=== PATIENT | male | born 1945 | race Caucasian/White ===

== ENCOUNTER 2016-02-15 10:43 | Outpatient (CLI) | payer MEDICARE | END 2016-02-15 10:44 | disposition home or self-care (01) | DX: G47.33 Obstructive sleep apnea (adult) (pediatric) (principal); G47.00 Insomnia, unspecified | CPT/HCPCS: 99204; G0463 ==

== ENCOUNTER 2016-03-05 19:33 | Outpatient (CLI) | payer MEDICARE | END 2016-03-05 19:34 | disposition home or self-care (01) | DX: G47.33 Obstructive sleep apnea (adult) (pediatric) (principal); G47.61 Periodic limb movement disorder ==

== ENCOUNTER 2016-03-25 07:56 | Outpatient (CLI) | payer MEDICARE | END 2016-03-25 07:57 | disposition home or self-care (01) | DX: I10 Essential (primary) hypertension (principal) ==

== ENCOUNTER 2016-03-25 08:14 | Outpatient (CLI) | payer MEDICARE | END 2016-03-25 08:15 | disposition home or self-care (01) | DX: I10 Essential (primary) hypertension (principal) ==

== ENCOUNTER 2016-03-26 09:27 | Outpatient (CLI) | payer MEDICARE | END 2016-03-26 09:28 | disposition home or self-care (01) | DX: G47.33 Obstructive sleep apnea (adult) (pediatric) (principal) | CPT/HCPCS: 99213; G0463 ==

== ENCOUNTER 2017-09-29 14:15 | Outpatient (CLI) | payer MEDICARE ==
--- NOTE | 2017-09-29 15:53 | XRAY Report ---
Procedure Date: 09/29/2017 Accession Number: [id number] / [id number] Procedure: XR - Cervical Spine Complete CPT Code: FULL RESULT: EXAM: CERVICAL SPINE RADIOGRAPHY EXAM DATE: 09/29/2017 02:37 PM. CLINICAL HISTORY: CERVICALGIA. COMPARISONS: None. TECHNIQUE: 5 views. FINDINGS: Alignment: Normal. No spondylolisthesis or scoliosis. Bones: The cervical vertebral bodies and posterior elements are well-visualized from the skull base through C7-T1. No fracture or bone lesion evident. Disks: Multilevel moderate disk degeneration. Facets: Multiple moderate facet arthrosis. Neural Foramina: Moderate midcervical foraminal narrowing on the right, mild on the left. Soft Tissues: Unremarkable. IMPRESSION: Moderate disk degeneration. Mild facet arthrosis. Mild to moderate bilateral neural foraminal narrowing. RADIA
== END 2017-09-29 14:16 | disposition home or self-care (01) ==
LOC: DI 14:15
PROVIDERS: ATTEND Internal Medicine
DX: M50.30 Other cervical disc degeneration, unspecified cervical region (principal); M48.02 Spinal stenosis, cervical region
CPT/HCPCS: 72050

== ENCOUNTER 2018-02-05 08:05 | Outpatient (CLI) | payer MEDICARE ==
[2018-02-05 12:47] LABS: BASOPHILS # (AUTO) 0.1 10^3/uL (0.0-0.1); BASOPHILS % (AUTO) 1.1 %; EOSINOPHILS # (AUTO) 0.3 10^3/uL (0.0-0.7); EOSINOPHILS % (AUTO) 5.6 %; HGB - HEMOGLOBIN 16.3 g/dL (14.0-18.0); LYMPHOCYTES # (AUTO) 1.4 10^3/uL (1.5-3.5); LYMPHOCYTES % (AUTO) 25.2 %; MEAN CORPUSCULAR HEMOGLOBIN 32.7 pg (27.0-31.0); MEAN CORPUSCULAR HGB CONC 35.2 g/dL (32.0-36.0); MEAN PLATELET VOLUME 9.7 fL (7.4-11.4); MONOCYTES # (AUTO) 0.6 10^3/uL (0.0-1.0); MONOCYTES % (AUTO) 10.8 %; NEUTROPHILS # (AUTO) 3.1 10^3/uL (1.5-6.6); NEUTROPHILS % (AUTO) 57.3 %; PLT - PLATELET COUNT 143 10^3/uL (130-450); RED BLOOD COUNT 4.98 10^6/uL (4.70-6.10); RED CELL DISTRIBUTION WIDTH 13.2 % (12.0-15.0); WHITE BLOOD COUNT 5.4 x10^3/uL (4.8-10.8)
[2018-02-05 13:18] LABS: ALBUMIN 4.3 g/dL (3.2-5.5); ALBUMIN/GLOBULIN RATIO 1.4 (1.0-2.2); ALKALINE PHOSPHATASE 69 IU/L (42-121); ALT ALANINE AMINOTRANSFERASE 35 IU/L (10-60); AST ASPARTATE AMINOTRANSFERASE 28 IU/L (10-42); BILIRUBIN,TOTAL 1.2 mg/dL (0.2-1.0); BUN - BLOOD UREA NITROGEN 21 mg/dL (6-20); CARBON DIOXIDE - CO2 29 mmol/L (21-32); CHLORIDE 104 mmol/L (101-111); CHOL/HDL RATIO 3.2 (<5.0); CHOLESTEROL 158 mg/dL; CREATININE 1.2 mg/dL (0.6-1.2); GFR - MDRD 60 (>89); GLUCOSE 102 mg/dL (70-100); HDL CHOLESTEROL 50 mg/dL; LDL CHOLESTEROL,CALCULATED 88 mg/dL; LDL/HDL RATIO 1.8 (<3.6); SODIUM 139 mmol/L (135-145); TOTAL PROTEIN 7.3 g/dL (6.7-8.2); VLDL CHOLESTEROL 20 mg/dL
== END 2018-02-05 23:59 | disposition home or self-care (01) ==
LOC: LAB.R 08:05
PROVIDERS: ATTEND Internal Medicine
DX: E03.9 Hypothyroidism, unspecified (principal); I10 Essential (primary) hypertension; I25.10 Atherosclerotic heart disease of native coronary artery without angina pectoris; Z12.5 Encounter for screening for malignant neoplasm of prostate; Z79.899 Other long term (current) drug therapy
CPT/HCPCS: 80053; 80061; 84443; 85025; G0103; 83721; 84153

== ENCOUNTER 2018-03-11 16:11 | Outpatient (CLI) | payer MEDICARE ==
--- NOTE | 2018-03-12 16:05 | Ultrasound Report ---
Reason: HYPOTHYROIDISM Procedure Date: 03/11/2018 Accession Number: [id number] / [id number] Procedure: US - Head or Neck Soft Tissue CPT Code: FULL RESULT: EXAM: THYROID ULTRASOUND. EXAM DATE: 03/11/2018 04:25 PM. CLINICAL HISTORY: Hypothyroidism. COMPARISON: None. TECHNIQUE: Real time sonographic imaging of the thyroid was performed by the ordering box operator. Multiple sales representative printing supplies static images were saved for review. FINDINGS: THYROID GLAND: Right Lobe: 3.1 x 2.9 x 7.1 cm, volume 33.4 cc. Heterogeneous and echogenic diffusely enlarged thyroid gland with increased vascularity by color Doppler. Right Lobe Nodules: Along the inferior pole is a solid hypoechoic 1.3 x 1.2 x 1.7 cm mass without detectable vascularity or calcifications. In the midpole is a 1.3 x 1.0 x 1.0 cm hypoechoic vascular nodule without calcifications. Left Lobe: 2.4 x 3.6 x 5.5 cm, volume 25.6 cc. Heterogeneous and echogenic diffusely enlarged thyroid gland with increased vascularity by color Doppler. Left Lobe Nodules: None. Isthmus: 0.5 cm AP. Isthmic Nodules: None. LYMPH NODES: No adenopathy demonstrated in the central or lateral compartment. OTHER: None. IMPRESSION: Redemonstration of a heterogeneously enlarged echogenic thyroid gland. On today's exam there is globally increased vascularity, thyroiditis. Interval development of 2 nodules of the right thyroid. Recommendation: FNA of both nodules of the right thyroid gland. Per NIKHIL guidelines hypoechoic smoothly marginated nodules are of intermediate suspicion and should be sampled above a size of 1 cm. Management recommendations are based on 2015 [place] [employer] Management Guidelines for Adult Patients with Thyroid Nodules and Differentiated Thyroid Cancer. RADIA
== END 2018-03-11 16:12 | disposition home or self-care (01) ==
LOC: DI 16:11
PROVIDERS: ATTEND Internal Medicine
DX: E04.2 Nontoxic multinodular goiter (principal); E06.9 Thyroiditis, unspecified
CPT/HCPCS: 76536

== ENCOUNTER 2018-03-20 07:54 | Outpatient (CLI) | payer MEDICARE ==
--- NOTE | 2018-03-20 12:46 | CARDIAC PROCEDURE NOTE ---
DATE OF SERVICE: 03/20/2018 Physician: Lisa Mendes MD INDICATIONS: CAD. CARDIAC RISK FACTORS: Male gender, advanced age, hypertension, family history of heart disease. The patient has known coronary artery disease, status post atherectomy in the . PROCEDURE: After signing informed consent, the patient underwent a Rodger protocol treadmill stress test with Echo imaging at rest, and at peak heart rate. Resting heart rate: 58. Peak heart rate: 128 (85% predicted maximum heart rate for age). Resting blood pressure: 141/81. Peak blood pressure: 190/80. The patient exercised for 8 minutes and 25 seconds on a Rodger-protocol treadmill stress test. He achieved a peak heart rate of 128 (85% PMHR) and 10.2 METS. The patient had minimal shortness of breath and no chest pain or generalized fatigue. Normal heart rate and blood pressure response to exercise. (The patient had stopped his Metoprolol for 24 hours for this test.) RESTING EKG: Normal sinus rhythm, incomplete left bundle branch block. EKG AT PEAK: No new ST segment or T-wave changes. SUMMARY 1. Abnormal resting EKG. 2. Good exercise tolerance. 3. No ischemic changes by EKG criteria on this exercise stress test. 4. Echo images reported separately. cc: Leo Gibbs MD TD: 03/20/2018 11:10 MTDD
== END 2018-03-20 07:55 | disposition home or self-care (01) ==
LOC: DI 07:54
PROVIDERS: ATTEND Internal Medicine
DX: I25.10 Atherosclerotic heart disease of native coronary artery without angina pectoris (principal); I10 Essential (primary) hypertension; Z82.49 Family history of ischemic heart disease and other diseases of the circulatory system; R94.31 Abnormal electrocardiogram [ECG] [EKG]
CPT/HCPCS: 93016; 93017; 93018; 93350; A9512; A9538; 93351

== ENCOUNTER 2018-05-19 13:18 | Outpatient (CLI) | payer MEDICARE ==
[2018-05-19] MEDS ORDERED: BUFFERED LIDOCAINE 10 ML SYRINGE ONE (14:02)
--- NOTE | 2018-05-19 16:02 | Ultrasound Report ---
REVISED: THIS REPORT WAS ORIGINALLY SIGNED ON 05/19/2018 @ 1603. THE PRIMARY CARE PROVIDER FIELD REVISED ON 05/21/2018. Reason: THYROID NODULE Procedure Date: 05/19/2018 Accession Number: [id number] / [id number] Procedure: US - FNA Bx w/US Gnd 1st les CPT Code: 51044 FULL RESULT: EXAM: Thyroid Fine Needle Aspiration EXAM DATE: 05/19/2018 01:59 PM. CLINICAL HISTORY: Thyroid nodule. COMPARISON: None. TECHNIQUE: The risks, benefits, and alternatives of the procedure were discussed with the patient. All questions were answered. Written and verbal consent were obtained. A site was marked over the right thyroid lobe allowing access to both target right thyroid nodules in question under live sonographic evaluation, then subsequently prepped and draped in a sterile manner. Local anesthesia was performed with 1% lidocaine. A total of 4 22 gauge fine-needle aspirates/passes were performed through each of the 2 right thyroid nodules in question, then passed to the internal salesperson for preparation. Estimated blood loss was 0 mL. Sonographic images demonstrate needle placement within the lateral well-circumscribed hypoechoic right lobe nodule and the inferior pole hyperechoic right thyroid lobe nodule in question. Fluoroscopy Time: 0 minutes Number of Images: 23 FINDINGS IMPRESSION: Right lobe of the thyroid FNA sampling of 2 nodules. RADIA MTDD
[2018-05-19] MEDS ORDERED: BUFFERED LIDOCAINE 10 ML SYRINGE IU ONE (16:52)
== END 2018-05-19 13:19 | disposition home or self-care (01) ==
LOC: DI 13:18
PROVIDERS: ATTEND Registered Nurse
DX: E04.1 Nontoxic single thyroid nodule (principal)
CPT/HCPCS: 10005

== ENCOUNTER 2018-07-16 10:46 | Day surgery (SDC) | payer MEDICARE, OTHER ==
[2018-07-16] MEDS ORDERED: LACTATED RINGERS 1,000 ML IV ONE (10:48)
[2018-07-16] MEDS ORDERED: MIDAZOLAM 2 MG/2 ML VIAL IVP ONE (12:09)
[2018-07-16] MEDS ORDERED: fentaNYL 250 MCG/5 ML VIAL IVP ONE (12:09)
[2018-07-16 12:59] VITALS: BP 127/85
== END 2018-07-16 10:47 | disposition home or self-care (01) ==
LOC: SDS 10:46
PROVIDERS: ATTEND Surgery
PROC: 0DBK8ZZ Excision of Ascending Colon, Via Natural or Artificial Opening Endoscopic (ICD-10-PCS; principal; 2018-07-16 12:00)
DX: Z12.11 Encounter for screening for malignant neoplasm of colon (principal); I10 Essential (primary) hypertension; D12.2 Benign neoplasm of ascending colon; K57.30 Diverticulosis of large intestine without perforation or abscess without bleeding; K64.8 Other hemorrhoids; E06.3 Autoimmune thyroiditis; Z87.891 Personal history of nicotine dependence; Z86.14 Personal history of Methicillin resistant Staphylococcus aureus infection
CPT/HCPCS: 45385; J3010; J7120

== ENCOUNTER 2019-09-23 08:27 | Outpatient (CLI) | payer MEDICARE ==
[2019-09-23 08:42] LABS: BASOPHILS % (AUTO) 0.7 %; EOSINOPHILS # (AUTO) 0.2 10^3/uL (0.0-0.7); EOSINOPHILS % (AUTO) 3.7 %; HGB - HEMOGLOBIN 15.9 g/dL (14.0-18.0); LYMPHOCYTES # (AUTO) 1.8 10^3/uL (1.5-3.5); LYMPHOCYTES % (AUTO) 30.4 %; MEAN CORPUSCULAR HEMOGLOBIN 33.1 pg (27.0-31.0); MEAN CORPUSCULAR HGB CONC 34.9 g/dL (32.0-36.0); MEAN CORPUSCULAR VOLUME 94.8 fL (80.0-94.0); MEAN PLATELET VOLUME 10.8 fL (7.4-11.4); MONOCYTES # (AUTO) 0.5 10^3/uL (0.0-1.0); MONOCYTES % (AUTO) 7.8 %; NEUTROPHILS # (AUTO) 3.4 10^3/uL (1.5-6.6); NEUTROPHILS % (AUTO) 57.1 %; PLT - PLATELET COUNT 164 10^3/uL (130-450); RED BLOOD COUNT 4.81 10^6/uL (4.70-6.10); RED CELL DISTRIBUTION WIDTH 13.1 % (12.0-15.0); WHITE BLOOD COUNT 5.9 x10^3/uL (4.8-10.8)
[2019-09-23 09:04] LABS: ALBUMIN 4.3 g/dL (3.2-5.5); ALBUMIN/GLOBULIN RATIO 1.4 (1.0-2.2); ALKALINE PHOSPHATASE 72 IU/L (42-121); ALT ALANINE AMINOTRANSFERASE 48 IU/L (10-60); AST ASPARTATE AMINOTRANSFERASE 34 IU/L (10-42); BILIRUBIN,TOTAL 0.7 mg/dL (0.2-1.0); BUN - BLOOD UREA NITROGEN 24 mg/dL (6-20); CALCIUM 9.1 mg/dL (8.5-10.3); CARBON DIOXIDE - CO2 26 mmol/L (21-32); CHLORIDE 104 mmol/L (101-111); CHOL/HDL RATIO 3.5 (<5.0); CHOLESTEROL 140 mg/dL; CREATININE 1.1 mg/dL (0.6-1.2); GLUCOSE 117 mg/dL (70-100); HDL CHOLESTEROL 40 mg/dL; LDL CHOLESTEROL,CALCULATED 81 mg/dL; SODIUM 139 mmol/L (135-145); TOTAL PROTEIN 7.4 g/dL (6.7-8.2); VLDL CHOLESTEROL 19 mg/dL
[2019-09-23 09:28] LABS: PSA FREE 0.33 ng/mL (0.16-2.81)
[2019-09-23 09:29] LABS: PSA TOTAL 0.91 ng/mL (0.000-2.000)
== END 2019-09-23 08:28 | disposition home or self-care (01) ==
LOC: LAB 08:27
PROVIDERS: ATTEND Registered Nurse
DX: E78.5 Hyperlipidemia, unspecified (principal); E03.9 Hypothyroidism, unspecified; I10 Essential (primary) hypertension; Z12.5 Encounter for screening for malignant neoplasm of prostate
CPT/HCPCS: 36415; 80053; 80061; 83721; 84153; 84154; 84443; 85025

== ENCOUNTER 2019-09-30 11:16 | Outpatient (CLI) | payer MEDICARE ==
--- NOTE | 2019-09-30 12:51 | CARDIAC PROCEDURE NOTE ---
DATE OF SERVICE: 09/30/2019 Physician: Lisa Mendes MD, [facility] INDICATIONS 1. Atherosclerotic heart disease. 2. Patient reports recent new fatigue. CARDIAC RISK FACTORS 1. Male gender. 2. Hypertension. 3. Hyperlipidemia. 4. Family history of heart disease. 5. Patient has known coronary artery disease and had atherectomy in 1991. DESCRIPTION OF PROCEDURE: After signing informed consent, patient underwent a Rodger-protocol treadmill stress test. No imaging was ordered with this test. RESTING HEART RATE: 59. PEAK HEART RATE: 125 (86% predicted maximum heart rate for age). RESTING BLOOD PRESSURE: 122/78. PEAK BLOOD PRESSURE: 202/92. STUDY DETAILS: Patient exercised for 9 minutes on a Rodger-protocol treadmill stress test. He achieved a peak heart rate of 125 (86% PMHR, and 10.2 METS. Patient had no chest pain, had moderate shortness of breath at peak, and reported no "fatigue." He did report his perceived exertion at peak at 18/20 on the Samson scale. Oxygen saturation was 94-97% on room air throughout the test. RESTING EKG: Sinus bradycardia, incomplete left bundle branch block, LVH voltage, QS present in V1 and V2, which may represent LVH or prior ME. This is similar to his EKG from 03/2018. EKG AT PEAK: No new ST segment or T-wave changes, rare PVCs with exercise and 1 ventricular couplet was seen. SUMMARY 1. Abnormal resting EKG. 2. Good exercise tolerance. 3. No ischemic changes by EKG criteria occurred during this stress test, at a good level of exercise achieved. 4. No imaging was ordered with this test. 5. This patient's cardiac risk based on all the above: Low to moderate. cc: ARON Guerrero TD: 09/30/2019 12:27 MTDNicky
== END 2019-09-30 11:17 | disposition home or self-care (01) ==
LOC: DI 11:16
PROVIDERS: ATTEND Registered Nurse
DX: R94.31 Abnormal electrocardiogram [ECG] [EKG] (principal); I10 Essential (primary) hypertension; E78.5 Hyperlipidemia, unspecified; I25.10 Atherosclerotic heart disease of native coronary artery without angina pectoris; Z82.49 Family history of ischemic heart disease and other diseases of the circulatory system
CPT/HCPCS: 93016; 93017; 93018

== ENCOUNTER 2019-10-15 08:16 | Outpatient (CLI) | payer MEDICARE ==
[2019-10-15 12:08] LABS: HEMOGLOBIN A1c% 5.4 % (4.27-6.07)
== END 2019-10-15 08:17 | disposition home or self-care (01) ==
LOC: LAB 08:16
PROVIDERS: ATTEND Registered Nurse
DX: R73.9 Hyperglycemia, unspecified (principal)
CPT/HCPCS: 36415; 83036

== ENCOUNTER 2020-08-22 15:33 | Outpatient (CLI) | payer MEDICARE ==
[2020-08-22 16:33] LABS: BASOPHILS # (AUTO) 0.1 10^3/uL (0.0-0.1); BASOPHILS % (AUTO) 0.8 %; EOSINOPHILS # (AUTO) 0.2 10^3/uL (0.0-0.7); EOSINOPHILS % (AUTO) 3.7 %; HCT - HEMATOCRIT 44.4 % (42.0-52.0); HGB - HEMOGLOBIN 15.3 g/dL (14.0-18.0); LYMPHOCYTES # (AUTO) 1.4 10^3/uL (1.5-3.5); LYMPHOCYTES % (AUTO) 20.6 %; MEAN CORPUSCULAR HEMOGLOBIN 32.7 pg (27.0-31.0); MEAN CORPUSCULAR HGB CONC 34.5 g/dL (32.0-36.0); MEAN CORPUSCULAR VOLUME 94.9 fL (80.0-94.0); MEAN PLATELET VOLUME 11.2 fL (7.4-11.4); MONOCYTES # (AUTO) 0.7 10^3/uL (0.0-1.0); MONOCYTES % (AUTO) 11.1 %; NEUTROPHILS # (AUTO) 4.2 10^3/uL (1.5-6.6); NEUTROPHILS % (AUTO) 63.6 %; PLT - PLATELET COUNT 146 10^3/uL (130-450); RED BLOOD COUNT 4.68 10^6/uL (4.70-6.10); WHITE BLOOD COUNT 6.6 x10^3/uL (4.8-10.8)
[2020-08-22 16:44] LABS: ALBUMIN 4.4 g/dL (3.2-5.5); BILIRUBIN,DIRECT 0.1 mg/dL (0.1-0.5); BILIRUBIN,TOTAL 0.9 mg/dL (0.2-1.0); TOTAL PROTEIN 7.3 g/dL (6.7-8.2)
== END 2020-08-22 15:34 | disposition home or self-care (01) ==
LOC: LAB 15:33
PROVIDERS: ATTEND Physician Assistant
DX: B35.1 Tinea unguium (principal)
CPT/HCPCS: 36415; 80076; 85025

== ENCOUNTER 2020-09-07 08:13 | Outpatient (CLI) | payer MEDICARE ==
[2020-09-07 08:41] LABS: BASOPHILS # (AUTO) 0.1 10^3/uL (0.0-0.1); EOSINOPHILS # (AUTO) 0.2 10^3/uL (0.0-0.7); EOSINOPHILS % (AUTO) 4.1 %; HGB - HEMOGLOBIN 15.2 g/dL (14.0-18.0); LYMPHOCYTES # (AUTO) 1.2 10^3/uL (1.5-3.5); LYMPHOCYTES % (AUTO) 23.7 %; MEAN CORPUSCULAR HEMOGLOBIN 32.6 pg (27.0-31.0); MEAN CORPUSCULAR HGB CONC 33.8 g/dL (32.0-36.0); MEAN CORPUSCULAR VOLUME 96.6 fL (80.0-94.0); MONOCYTES # (AUTO) 0.5 10^3/uL (0.0-1.0); MONOCYTES % (AUTO) 9.7 %; NEUTROPHILS % (AUTO) 61.5 %; PLT - PLATELET COUNT 147 10^3/uL (130-450); RED BLOOD COUNT 4.66 10^6/uL (4.70-6.10); RED CELL DISTRIBUTION WIDTH 13.2 % (12.0-15.0); WHITE BLOOD COUNT 4.9 x10^3/uL (4.8-10.8)
[2020-09-07 09:01] LABS: ALBUMIN 4.1 g/dL (3.2-5.5); BILIRUBIN,DIRECT 0.1 mg/dL (0.1-0.5); BILIRUBIN,TOTAL 1.2 mg/dL (0.2-1.0); TOTAL PROTEIN 6.8 g/dL (6.7-8.2)
== END 2020-09-07 08:14 | disposition home or self-care (01) ==
LOC: LAB 08:13
PROVIDERS: ATTEND Physician Assistant
DX: B35.1 Tinea unguium (principal)
CPT/HCPCS: 36415; 80076; 85025

== ENCOUNTER 2020-09-11 08:11 | Outpatient (CLI) | payer MEDICARE ==
[2020-09-11 08:37] LABS: BASOPHILS # (AUTO) 0.1 10^3/uL (0.0-0.1); BASOPHILS % (AUTO) 1.1 %; EOSINOPHILS # (AUTO) 0.3 10^3/uL (0.0-0.7); EOSINOPHILS % (AUTO) 5.6 %; HCT - HEMATOCRIT 46.8 % (42.0-52.0); HGB - HEMOGLOBIN 16.2 g/dL (14.0-18.0); LYMPHOCYTES # (AUTO) 1.5 10^3/uL (1.5-3.5); LYMPHOCYTES % (AUTO) 27.6 %; MEAN CORPUSCULAR HEMOGLOBIN 32.8 pg (27.0-31.0); MEAN CORPUSCULAR HGB CONC 34.6 g/dL (32.0-36.0); MEAN CORPUSCULAR VOLUME 94.7 fL (80.0-94.0); MONOCYTES # (AUTO) 0.6 10^3/uL (0.0-1.0); MONOCYTES % (AUTO) 10.2 %; NEUTROPHILS # (AUTO) 3.1 10^3/uL (1.5-6.6); NEUTROPHILS % (AUTO) 55.5 %; PLT - PLATELET COUNT 148 10^3/uL (130-450); RED BLOOD COUNT 4.94 10^6/uL (4.70-6.10); RED CELL DISTRIBUTION WIDTH 13.1 % (12.0-15.0); WHITE BLOOD COUNT 5.5 x10^3/uL (4.8-10.8)
[2020-09-11 08:59] LABS: ALBUMIN 4.2 g/dL (3.2-5.5); ALBUMIN/GLOBULIN RATIO 1.3 (1.0-2.2); ALKALINE PHOSPHATASE 65 IU/L (42-121); ALT ALANINE AMINOTRANSFERASE 32 IU/L (10-60); AST ASPARTATE AMINOTRANSFERASE 22 IU/L (10-42); BILIRUBIN,TOTAL 1.2 mg/dL (0.2-1.0); BUN - BLOOD UREA NITROGEN 21 mg/dL (6-20); CALCIUM 8.8 mg/dL (8.5-10.3); CARBON DIOXIDE - CO2 27 mmol/L (21-32); CHLORIDE 101 mmol/L (101-111); CHOL/HDL RATIO 3.3 (<5.0); CHOLESTEROL 156 mg/dL; CREATININE 1.1 mg/dL (0.6-1.2); GFR - MDRD 65 (>89); GLUCOSE 121 mg/dL (70-100); HDL CHOLESTEROL 48 mg/dL; LDL CHOLESTEROL,CALCULATED 87 mg/dL; LDL/HDL RATIO 1.8 (<3.6); POTASSIUM 4.4 mmol/L (3.5-5.0); SODIUM 136 mmol/L (135-145); TOTAL PROTEIN 7.5 g/dL (6.7-8.2); TRIGLYCERIDES 107 mg/dL; VLDL CHOLESTEROL 21 mg/dL
[2020-09-11 09:10] LABS: THYROID STIMULATING HORMONE 5.16 uIU/mL (0.34-5.60)
== END 2020-09-11 08:12 | disposition home or self-care (01) ==
LOC: LAB 08:11
PROVIDERS: ATTEND Registered Nurse
DX: Z00.00 Encounter for general adult medical examination without abnormal findings (principal); I10 Essential (primary) hypertension; E78.5 Hyperlipidemia, unspecified; Z12.5 Encounter for screening for malignant neoplasm of prostate; E06.3 Autoimmune thyroiditis; E04.1 Nontoxic single thyroid nodule
CPT/HCPCS: 36415; 80053; 80061; 84443; 85025; G0103; 83721; 84153

== ENCOUNTER 2020-10-02 07:46 | Outpatient (CLI) | payer MEDICARE ==
[2020-10-02 08:18] LABS: CALCIUM 8.9 mg/dL (8.5-10.3); CREATININE 1.2 mg/dL (0.6-1.2); POTASSIUM 4.2 mmol/L (3.5-5.0)
== END 2020-10-02 07:47 | disposition home or self-care (01) ==
LOC: LAB 07:46
PROVIDERS: ATTEND Registered Nurse
DX: R73.9 Hyperglycemia, unspecified (principal)
CPT/HCPCS: 36415; 80048

== ENCOUNTER 2020-10-24 08:45 | Outpatient (CLI) | payer MEDICARE ==
--- NOTE | 2020-10-24 10:21 | CARDIAC PROCEDURE NOTE ---
Stress Test Report Service Date: 10/24/20 Service Time: 09:00 Ordering Provider: Farhana Gorman FNP-C Indication for Test: Re-assess for inducible ischemia in patient with history of remote PCI. Significant Medical History: -oKdi reports experiencing severe and progressive fatigue in 1992, with evaluation that prompted cardiac catheterization and atherectomy, with subsequent reduction in his fatigue level. He has undergone periodic stress t esting over subsequent years and returns for the same today. He reports that he remains active both at home and working out at the gym, without experiencing specific cardiovascular symptoms, such as angina, exertional dyspnea, lightheadedness or palpitations. He does mention some subacute worsening of fatigue over the past couple of years and taking naps in the afternoon intermittently, though states that this is not particularly progressive or worse recently. - He has a long history of hypertension, for which he is currently treated with lisinopril 20 mg qPM and amlodipine 2.5 mg twice daily. He was also taking metoprolol, but it was stopped in the past several months due to concern for bradycardia, with some subsequent decrease in his level of fatigue. He remains on aspirin and pravastatin for ongoing secondary prevention. Cardiac Risk Factors: Positive for prior CAD with PCI; has history of treated hypertension and dyslipidemia. He was a smoker and quit at the time of PCI in 1992. He has family members with CAD history but he has no personal history of diabetes. Type of Stress Test: ETT with Echocardiography Procedure: -Exercise Treadmill Test- After signing informed consent, resting echo images were obtained; the patient then performed treadmill exercise using a Rodger protocol. The patient exercised for 9 minutes 58 seconds and achieved a peak heart rate of 146 (100 percent predicted maximum heart rate for age), and an estimated workload of 11.5 METS. The test was terminated due to fatigue/shortness of breath after attaining his target heart rate. Resting heart rate: 58 Peak heart rate: 146 Normal response to exercise. Resting BP: 148/87 Peak BP: 212/79 Modestly hypertensive at rest with physiologic BP response to exercise. Rhythm during exercise: Sinus throughout, with rare isolated PACs and PVCs. Symptoms: No specific cardiovascular symptoms. EKG at rest showed sinus bradycardia, with left anterior fascicular block pattern with slight QRS prolongation (to 125 msec); probable left atrial abnormality and Q waves in leads V1/V2 of unclear significance (in setting of conduction abnormality). EKG at peak stress showed J-point depression with upsloping ST segments, NOT meeting criteria for ischemia. In Recovery heart rate and BP declined towards prior baseline levels. Echo imaging performed at rest and with stress will be reported separately. Note that for technical reasons there was a brief delay (~1 minute) in obtaining post-stress images. IAugie MD, was present throughout this treadmill stress test and supervised it in its entirety. Summary: 1) Excellent exercise tolerance as evidenced by achievement of 11.5 METS, with DOLLY of -53%. 2) Abnormal resting EKG. 3) Adequate level of exercise was achieved on this treadmill stress test. 4) Elevated resting blood pressure with normal BP response to exercise. 5) No ischemic changes by EKG criteria were seen at peak stress, though specificity may be reduced due to resting conduction abnormality. 6) Echo image analysis revealed normal resting wall motion with normal range lef t ventricular ejection fraction, with appropriate hyperdynamic augmentation of all segments, thus no echo evidence of prior infarct or inducible ischemia. See separate echo report for more detail. CONCLUSIONS: 1) Low risk and reassuring treadmill stress echocardiogram results, with excellent exercise tolerance. 2) Mild elevation of resting blood pressure was observed, prompting recommendation for re-assessment of adequacy of treatment through ambulatory self-monitoring.
== END 2020-10-24 08:46 | disposition home or self-care (01) ==
LOC: DI 08:45
PROVIDERS: ATTEND Registered Nurse
DX: I25.10 Atherosclerotic heart disease of native coronary artery without angina pectoris (principal); I10 Essential (primary) hypertension; E78.5 Hyperlipidemia, unspecified; Z87.891 Personal history of nicotine dependence; R94.31 Abnormal electrocardiogram [ECG] [EKG]
CPT/HCPCS: 93350

== ENCOUNTER 2020-10-25 14:03 | Outpatient (CLI) | payer MEDICARE ==
[2020-10-25 14:22] LABS: BASOPHILS # (AUTO) 0.1 10^3/uL (0.0-0.1); BASOPHILS % (AUTO) 0.8 %; EOSINOPHILS # (AUTO) 0.2 10^3/uL (0.0-0.7); HCT - HEMATOCRIT 44.6 % (42.0-52.0); HGB - HEMOGLOBIN 15.3 g/dL (14.0-18.0); LYMPHOCYTES # (AUTO) 1.4 10^3/uL (1.5-3.5); LYMPHOCYTES % (AUTO) 22.4 %; MEAN CORPUSCULAR HEMOGLOBIN 32.8 pg (27.0-31.0); MEAN CORPUSCULAR HGB CONC 34.3 g/dL (32.0-36.0); MEAN CORPUSCULAR VOLUME 95.7 fL (80.0-94.0); MEAN PLATELET VOLUME 10.7 fL (7.4-11.4); MONOCYTES # (AUTO) 0.6 10^3/uL (0.0-1.0); MONOCYTES % (AUTO) 10.3 %; NEUTROPHILS # (AUTO) 3.9 10^3/uL (1.5-6.6); NEUTROPHILS % (AUTO) 63.2 %; PLT - PLATELET COUNT 153 10^3/uL (130-450); RED BLOOD COUNT 4.66 10^6/uL (4.70-6.10); WHITE BLOOD COUNT 6.2 x10^3/uL (4.8-10.8)
[2020-10-25 14:55] LABS: ALBUMIN 4.2 g/dL (3.2-5.5); BILIRUBIN,DIRECT 0.1 mg/dL (0.1-0.5); TOTAL PROTEIN 7.3 g/dL (6.7-8.2)
== END 2020-10-25 14:04 | disposition home or self-care (01) ==
LOC: LAB 14:03
PROVIDERS: ATTEND Physician Assistant
DX: B35.1 Tinea unguium (principal)
CPT/HCPCS: 36415; 80076; 85025

== ENCOUNTER 2020-11-14 08:38 | Outpatient (CLI) | payer MEDICARE ==
[2020-11-14 08:51] LABS: BASOPHILS # (AUTO) 0.1 10^3/uL (0.0-0.1); EOSINOPHILS # (AUTO) 0.2 10^3/uL (0.0-0.7); EOSINOPHILS % (AUTO) 4.5 %; HCT - HEMATOCRIT 48.4 % (42.0-52.0); HGB - HEMOGLOBIN 16.3 g/dL (14.0-18.0); LYMPHOCYTES # (AUTO) 1.4 10^3/uL (1.5-3.5); LYMPHOCYTES % (AUTO) 29.3 %; MEAN CORPUSCULAR HEMOGLOBIN 32.3 pg (27.0-31.0); MEAN CORPUSCULAR HGB CONC 33.7 g/dL (32.0-36.0); MEAN PLATELET VOLUME 10.9 fL (7.4-11.4); MONOCYTES # (AUTO) 0.5 10^3/uL (0.0-1.0); MONOCYTES % (AUTO) 10.7 %; NEUTROPHILS # (AUTO) 2.6 10^3/uL (1.5-6.6); NEUTROPHILS % (AUTO) 54.3 %; PLT - PLATELET COUNT 154 10^3/uL (130-450); RED BLOOD COUNT 5.04 10^6/uL (4.70-6.10); WHITE BLOOD COUNT 4.8 x10^3/uL (4.8-10.8)
[2020-11-14 09:05] LABS: ALBUMIN 4.4 g/dL (3.2-5.5); BILIRUBIN,DIRECT 0.1 mg/dL (0.1-0.5); BILIRUBIN,TOTAL 1.1 mg/dL (0.2-1.0); TOTAL PROTEIN 7.2 g/dL (6.7-8.2)
== END 2020-11-14 08:39 | disposition home or self-care (01) ==
LOC: LAB 08:38
PROVIDERS: ATTEND Physician Assistant
DX: B35.1 Tinea unguium (principal)
CPT/HCPCS: 36415; 80076; 85025

== ENCOUNTER 2020-12-11 12:50 | Outpatient (CLI) | payer MEDICARE ==
[2020-12-11 13:17] LABS: BASOPHILS % (AUTO) 0.8 %; EOSINOPHILS # (AUTO) 0.1 10^3/uL (0.0-0.7); EOSINOPHILS % (AUTO) 2.5 %; HCT - HEMATOCRIT 44.6 % (42.0-52.0); HGB - HEMOGLOBIN 15.3 g/dL (14.0-18.0); LYMPHOCYTES # (AUTO) 1.1 10^3/uL (1.5-3.5); LYMPHOCYTES % (AUTO) 22.6 %; MEAN CORPUSCULAR HGB CONC 34.3 g/dL (32.0-36.0); MEAN CORPUSCULAR VOLUME 96.1 fL (80.0-94.0); MEAN PLATELET VOLUME 11.2 fL (7.4-11.4); MONOCYTES # (AUTO) 0.6 10^3/uL (0.0-1.0); MONOCYTES % (AUTO) 11.9 %; PLT - PLATELET COUNT 141 10^3/uL (130-450); RED BLOOD COUNT 4.64 10^6/uL (4.70-6.10); RED CELL DISTRIBUTION WIDTH 12.7 % (12.0-15.0); WHITE BLOOD COUNT 4.8 x10^3/uL (4.8-10.8)
[2020-12-11 13:30] LABS: ALBUMIN 4.3 g/dL (3.2-5.5); BILIRUBIN,DIRECT 0.1 mg/dL (0.1-0.5); BILIRUBIN,TOTAL 1.1 mg/dL (0.2-1.0); TOTAL PROTEIN 7.3 g/dL (6.7-8.2)
== END 2020-12-11 12:51 | disposition home or self-care (01) ==
LOC: LAB 12:50
PROVIDERS: ATTEND Physician Assistant
DX: B35.1 Tinea unguium (principal)
CPT/HCPCS: 36415; 80076; 85025

== ENCOUNTER 2021-08-06 15:45 | Emergency (ER) | payer MEDICARE ==
[2021-08-06 15:55] VITALS: BP 151/84
--- NOTE | 2021-08-06 16:21 | XRAY Report ---
PROCEDURE: Foot 3 View LT INDICATIONS: Trauma TECHNIQUE: 3 views of the foot were acquired. COMPARISON: None FINDINGS: Bones: No fractures or dislocations. No suspicious bony lesions. Soft tissues: No tibiotalar joint effusion. Achilles tendon appears normal. IMPRESSION: No fracture. No acute osseous lesion. If symptoms and/or clinical concern for pathology persists, fur ther assessment with repeat plain film radiographs (7-10 days) or advanced imaging (CT, MR, bone scan ) should be considered. Reviewed by: Lanny Dumas MD, PhD on 08/06/2021 4:19 PM PDT Approved by: Lanny Dumas MD, PhD on 08/06/2021 4:19 PM PDT Station ID: [id number]
--- NOTE | 2021-08-06 17:32 | ED Physician Documentation ---
History of Present Illness - Stated complaint Stated Complaint: LT FOOT TOE INJ - Chief complaint Chief Complaint: Trauma Ext - History obtained from History obtained from: Patient - History of Present Illness Timing: How many days ago (3) Pain level max: 5 Pain level now: 2 - Additonal information Additional information: 76-year-old male presents to the emergency department after he stubbed his left fourth toe on a baseboard a few days ago at home. Has continued swelling and bruising today. Worse with walking and palpation, better with rest. No numbness or tingling Review of Systems Constitutional: denies: Fever, Chills GI: denies: Vomiting Skin: denies: Rash Musculoskeletal: denies: Neck pain, Back pain Neurologic: denies: Headache PD PAST MEDICAL HISTORY - Past Medical History Cardiovascular: Hypertension, High cholesterol, Coronary artery disease Respiratory: Sleep apnea Endocrine/Autoimmune: HyPOthyroidism Psych: Post traumatic stress disorder - Past Surgical History General: Colonoscopy Cardiovascular: Angioplasty - Present Medications Home Medications: Ambulatory Orders Medication Instructions Recorded Confirmed Amlodipine Besylate [Norvasc] 1 tab PO DAILY 07/16/18 07/16/18 Clobetasol Propionate 15 gm TP BID 07/16/18 07/16/18 Levothyroxine Sodium 100 mcg PO DAILY 07/16/18 07/16/18 Metoprolol Tartrate 25 mg PO DAILY 07/16/18 07/16/18 Pravastatin Sodium 1 tab PO DAILY 07/16/18 07/16/18 Sildenafil Citrate [Viagra] 50 mg PO DAILY 07/16/18 07/16/18 Trazodone HCl 100 mg PO DAILY 07/16/18 07/16/18 Urea 20 gm TP BID 07/16/18 07/16/18 lisinopriL [Lisinopril] 20 mg PO DAILY 07/16/18 07/16/18 - Allergies Allergies/Adverse Reactions: Allergies Allergy/AdvReac Type Severity Reaction Status Date / Time No Known Drug Allergies Allergy Verified 08/06/21 15:56 PD ED PE NORMAL - Vitals Vital signs reviewed: Yes - General General: Alert and oriented X 3, No acute distress - Derm Derm: Warm and dry - Extremities Extremities: Other (L 4th toe - Mild ecchymosis and swelling. There is ecchymosis over the dorsum of the foot as well. Mild tenderness. Neurovascular intact. No lacerations. No subungual hematoma.) - Neuro Neuro: Alert and oriented X 3 Results - Vitals Vitals: Vital Signs - 24 hr 08/06/21 15:53 Temperature 36.8 C Heart Rate 58 L Respiratory 14 Rate Blood Pressure 151/84 H O2 Saturation 96 Oxygen O2 Source Room air - Rads (name of study) L foot xray Radiology: Final report received, EMP read contemporaneously, See rad report (no acute fractures. ) PD MEDICAL DECISION MAKING - ED course Complexity details: reviewed results, re-evaluated patient, considered differential, d/w patient ED course: 76-year-old male with a sprain/contusion to the left fourth toe. No acute findings on x-ray. Declines any pain medication here for home. Ambulating well in his normal shoe. Patient counseled regarding signs and symptoms for which I believe and urgent re-evaluation would be necessary. Patient with good understanding of and agreement to plan and is comfortable going home at this time This document was made in part using voice recognition software. While efforts are made to proofread this document, sound alike and grammatical errors may occur. Departure - Departure Disposition: 01 Home, Self Care Clinical Impression: Sprain of fourth toe, left Qualifiers: Encounter type: initial encounter Qualified Code(s): S93.505A - Unspecified sprain of left lesser toe(s), initial encounter Condition: Good Instructions: ED Sprain Toe Follow-Up: Farhana Gorman ARNP [Primary Care Provider] - As Needed Comments: Your x-ray does not show any acute fractures today. You may bear weight as tolerated. Follow-up with your doctor as needed for further care. Return if you worsen.
== END 2021-08-06 17:58 | disposition home or self-care (01) ==
LOC: ED 15:45
DX: S93.505A Unspecified sprain of left lesser toe(s), initial encounter (principal); W22.09XA Striking against other stationary object, initial encounter; Y92.009 Unspecified place in unspecified non-institutional (private) residence as the place of occurrence of the external cause
CPT/HCPCS: 99282; 99283

== ENCOUNTER 2021-12-21 08:29 | Outpatient (CLI) | payer MEDICARE ==
[2021-12-21 09:16] LABS: THYROID STIMULATING HORMONE 2.75 uIU/mL (0.34-5.60)
== END 2021-12-21 08:30 | disposition home or self-care (01) ==
LOC: LAB 08:29
PROVIDERS: ATTEND Registered Nurse
DX: E03.9 Hypothyroidism, unspecified (principal)
CPT/HCPCS: 36415; 84443

== ENCOUNTER 2022-01-14 08:52 | Outpatient (CLI) | payer MEDICARE ==
[2022-01-14 09:20] LABS: ALT ALANINE AMINOTRANSFERASE 31 IU/L (10-60); AST ASPARTATE AMINOTRANSFERASE 27 IU/L (10-42); GAMMA GLUTAMYL TRANSPEPTIDASE 17 IU/L (8-55)
== END 2022-01-14 08:53 | disposition home or self-care (01) ==
LOC: LAB 08:52
PROVIDERS: ATTEND Registered Nurse
DX: R74.8 Abnormal levels of other serum enzymes (principal)
CPT/HCPCS: 36415; 82977; 84450; 84460

== ENCOUNTER 2022-10-11 11:09 | Emergency (ER) | payer MEDICARE ==
[2022-10-11 11:30] VITALS: BP 128/78; O2SAT 97
--- OUTSIDE RECORDS SUMMARY | 2022-10-11 12:11 | EXTERNAL MEDICAL SUMMARY RPT | Continuity of Care Document ---
Author Name Unknown Address [address] [place] [address] Phone Organization [facility] Address [address] [place] [address] Phone Care Team Providers Care Bus And Rail Operator Name Role Phone Unavailable Unavailable Unavailable Farhana Norton Unavailable Unavailable Medications date description facility 2022-10-07 00:00 nirmatrelvir-ritonavir [facility] 2022-10-07 00:00 sildenafil [facility] 2022-10-08 00:00 sildenafil [facility] 2022-10-07 00:00 terbinafine hcl [facility] 2022-10-08 00:00 terbinafine hcl [facility] 2022-10-07 00:00 turmeric-turmeric root extract [facility] 2022-10-08 00:00 turmeric-turmeric root extract [facility] 2022-10-07 00:00 nirmatrelvir-ritonavir [facility] 2022-10-07 00:00 wijapheagdfk-cjkxfbex-dxxxwm [facility] 2022-10-08 00:00 btrnbzzoyljt-jhyfarjn-cybxnb [facility] 2022-10-07 00:00 omega-3 fatty acids-fish oil [facility] 2022-10-08 00:00 omega-3 fatty acids-fish oil [facility] 2022-10-07 00:00 nirmatrelvir-ritonavir [facility] 2022-10-07 00:00 nirmatrelvir-ritonavir [facility] [place] 2022-10-07 00:00 sildenafil [facility] [place] 2022-10-08 00:00 sildenafil [facility] [place] 2022-10-07 00:00 terbinafine hcl [facility] [place] 2022-10-08 00:00 terbinafine hcl [facility] [place] 2022-10-07 00:00 terbinafine hcl [facility] [place] 2022-10-08 00:00 terbinafine hcl [facility] [place] 2022-10-07 00:00 sildenafil [facility] [place] 2022-10-08 00:00 sildenafil [facility] [place] 2022-10-07 00:00 ippjvgxmtgrm-bykyhqzi-enjwkx [facility] [place] 2022-10-08 00:00 jjqlcbozmtdw-ylmbfrzz-mhfalp [facility] [place] 2022-10-07 00:00 sildenafil [facility] [place] 2022-10-08 00:00 sildenafil [facility] [place] 2022-10-07 00:00 terbinafine hcl [facility] [place] 2022-10-08 00:00 terbinafine hcl [facility] [place] 2022-10-07 00:00 omega-3 fatty acids-fish oil [facility] [place] 2022-10-08 00:00 omega-3 fatty acids-fish oil [facility] [place] 2022-10-07 00:00 mitjsulhyyby-kndhitej-jtxodg [facility] [place] 2022-10-08 00:00 lpfemzovlmjf-zxsdrkpf-lenuub [facility] [place] 2022-10-07 00:00 turmeric-turmeric root extract [facility] [place] 2022-10-08 00:00 turmeric-turmeric root extract [facility] [place] 2022-10-07 00:00 omega-3 fatty acids-fish oil [facility] [place] 2022-10-08 00:00 omega-3 fatty acids-fish oil [facility] [place] 2022-10-07 00:00 turmeric-turmeric root extract [facility] [place] 2022-10-08 00:00 turmeric-turmeric root extract [facility] Problems date description facility 2022-10-07 00:00 Acute COVID-19 [facility] [place] 2022-10-07 00:00 COVID-19 [facility] [place] Procedures date description facility 2022-10-07 00:00 Visit Code Hold [facility] [place] Vital Signs date measurement value units 2022-10-07 00:00 BMI 29.09 kg/m2 2022-10-07 00:00 BP_diastolic 85 mmHg 2022-10-07 00:00 BP_systolic 152 mmHg 2022-10-07 00:00 heart_rate 77 /min 2022-10-07 00:00 height_metric 177.8 cm 2022-10-07 00:00 height_standard 70 in 2022-10-07 00:00 respiration_rate 20 /min 2022-10-07 00:00 temperature_metric 37.44 C 2022-10-07 00:00 temperature_standard 99.4 F 2022-10-07 00:00 weight_metric 91.63 kg 2022-10-07 00:00 weight_standard 202 lb
--- NOTE | 2022-10-11 12:25 | XRAY Report ---
PROCEDURE: Knee 4 View RT INDICATIONS: Trauma TECHNIQUE: 4 views of the right knee(s) were acquired. COMPARISON: None. FINDINGS: Bones: No fractures or dislocations. No suspicious bony lesions. Tricompartmental arthritic costa e most severe medially. Soft tissues: Minimal knee joint effusion. No suspicious soft tissue calcifications or masses. IMPRESSION: No visualized acute fracture or dislocation. However, occult injury cannot be excluded. Recommend agus rt interval imaging follow-up in 7-10 days as clinically indicated for additional evaluation. Reviewed by: Nicole Pablo MD on 10/11/2022 12:23 PM PDT Approved by: Nicole Pablo MD on 10/11/2022 12:23 PM PDT Station ID: [id number]
--- NOTE | 2022-10-11 12:55 | ED Physician Documentation ---
History of Present Illness - Stated complaint Stated Complaint: RT KNEE SWELLING,PAIN/ C+ - Chief complaint Chief Complaint: Ext Problem - Additonal information Additional information: 77-year-old male here for evaluation of a right knee sprain. Reports twisting the knee about 5 weeks ago. Since then he has been having intermittent pain and swelling of the knee. He did [facility] September and he is scheduled for physical therapy as well as knee injections. He is alternating Tylenol, ibuprofen and knee salves without improvement. Today the knee is more swollen than it has been and tender. No fevers. No new trauma since the original incident. He states that he does have a history of previous knee issues though none that ever persisted for this long. Review of Systems Constitutional: denies: Fever Respiratory: reports: Reviewed and negative GI: reports: Reviewed and negative Musculoskeletal: reports: Joint pain, Joint swelling PD PAST MEDICAL HISTORY - Past Medical History Cardiovascular: Hypertension, High cholesterol, Coronary artery disease Respiratory: Sleep apnea Endocrine/Autoimmune: HyPOthyroidism Psych: Post traumatic stress disorder - Past Surgical History General: Colonoscopy Cardiovascular: Angioplasty - Present Medications Home Medications: Ambulatory Orders Medication Instructions Recorded Confirmed Amlodipine Besylate [Norvasc] 1 tab PO DAILY 07/16/18 07/16/18 Clobetasol Propionate 15 gm TP BID 07/16/18 07/16/18 Levothyroxine Sodium 100 mcg PO DAILY 07/16/18 07/16/18 Metoprolol Tartrate 25 mg PO DAILY 07/16/18 07/16/18 Pravastatin Sodium 1 tab PO DAILY 07/16/18 07/16/18 Sildenafil Citrate [Viagra] 50 mg PO DAILY 07/16/18 07/16/18 Trazodone HCl 100 mg PO DAILY 07/16/18 07/16/18 Urea 20 gm TP BID 07/16/18 07/16/18 lisinopriL [Lisinopril] 20 mg PO DAILY 07/16/18 07/16/18 HYDROcod/ACETAM 5/325 [[place] 5/325] 1 tablet PO BID PRN #10 tablet 10/11/22 - Allergies Allergies/Adverse Reactions: Allergies Allergy/AdvReac Type Severity Reaction Status Date / Time No Known Drug Allergies Allergy Verified 08/06/21 15:56 PD ED PE EXPANDED - Extremities Extremities: Right knee (Normal flexion extension of the knee. Minimal laxity medially. Palpable effusion is felt throughout the knee the largest on the medial point. Antalgic gait. No erythema or fever) Results - Vitals Vitals: Vital Signs - 24 hr 10/11/22 11:22 Temperature 36.7 C Heart Rate 74 Respiratory 18 Rate Blood Pressure 128/78 O2 Saturation 97 Oxygen O2 Source Room air - Rads (name of study) right knee Relevant Findings:: Final report received (No visualized acute fracture or dislocation. Minimal knee joint effusion.) PD Medical Decision Making - ED course Complexity details: reviewed results, re-evaluated patient ED course: 77-year-old male here for persistent right knee pain after twisting injury more than a month ago. It has waxed and waned in its course but today more swollen and tender than it has been. He has been seen by PCP and is scheduled for outpatient injections as well as physical therapy. X-ray today shows no fracture though he does have a mild to moderate knee effusion which is palpable on exam. Clinically history and exam is not consistent with an infected joint. I suspect the increasing effusion as cause of the pain. I did place an Juan wrap on the patient at the bedside and he reported that the pain was improved. I am encouraging him to continue follow-up with his PCP. He would benefit from physical therapy and/or injections. I think he should continue to wear an Juan bandage or knee sleeve. He should continue Tylenol and ibuprofen [id number]. For more severe pain limit amount of hydrocodone is being prescribed. The usual emergent return precautions worsening symptoms was discussed. I am prescribing a short course of short-acting opioid pain medication for this patient. I have reviewed the patients [employer] and no concerning findings were noted. I have discussed that the opioids are for short term therapy only, and will not be refilled from the ED. Departure - Departure Disposition: 01 Home, Self Care Clinical Impression: Knee effusion, right Internal derangement of knee, acute Qualifiers: Laterality: right Qualified Code(s): M23.91 - Unspecified internal derangement of right knee Condition: Stable Record reviewed to determine appropriate education?: Yes Instructions: ED Sprain Knee Collateral Ligaments Prescriptions: HYDROcod/ACETAM 5/325 [[place] 5/325] 1 tablet PO BID PRN #10 tablet PRN Reason: Pain Comments: Kendall you twisted your knee more than a month ago and since then have been having intermittent pain and swelling that was worse today. The x-ray of the knee shows no problems with the bones however there is an effusion or fluid around the knee joint. This is typically a sign of a more severe knee sprain also known as an internal derangement. Please continue to alternate taking Motrin and Tylenol. When effusions get too large they can become painful. I encourage you to wear the Juan bandage or a knee sleeve when out of bed. Continue to follow closely with the [place] for physical therapy and the planned knee injections. You may need to have an MRI performed of the knee but this is an outpatient procedure that should be ordered by your primary doctors. I am writing a prescription for a limited amount of hydrocodone to help with more severe pain. Return to the ER if you develop any fevers or have suddenly severe or different symptoms. I am prescribing a short course of narcotic pain medication for you. These are potentially dangerous and addictive medications that should be used carefully. These medications may constipate you. Take an ppxf-ryb-zkhpggn stool softener (docusate) twice daily with plenty of water while taking these medications. If you go 24 hours without a bowel movement, take [id number]-til-whpqfup miralax, per package instructions. Do not drink or drive while taking these medications. If you received narcotic or sedating medications while in the emergency department, do not drive for 24 hours. Store this medication in a safe, secure place and out of reach of children. It is a violation of federal law to give or sell this medication to another person or to use in a manner other than prescribed. The ED will not refill narcotic prescriptions, including prescriptions lost or stolen. To dispose of unwanted medications: 1. [facility] at [address] in [place] has a medication drop box. They accept prescription medications (in pill form) Friday through Friday 9:00 a.m. to 5:00 p.m. 2. The [facility] [employer] accepts prescription medications (in pill form only) for disposal year round. Call for more information. 3. Contact the [facility] for the next [facility] sponsored prescription drug collection event. , [phone], or [phone]; Note that many narcotic pain relievers also contain Tylenol/acetaminophen. Please ensure that your total dose of acetaminophen from all sources does not exceed 3 g (3000 mg) per day. .
== END 2022-10-11 13:23 | disposition home or self-care (01) ==
LOC: ED 11:09
DX: M25.461 Effusion, right knee (principal); M23.91 Unspecified internal derangement of right knee; X50.1XXA Overexertion from prolonged static or awkward postures, initial encounter; I10 Essential (primary) hypertension; E78.00 Pure hypercholesterolemia, unspecified; E03.9 Hypothyroidism, unspecified; Z79.899 Other long term (current) drug therapy
CPT/HCPCS: 99283

== ENCOUNTER 2022-11-15 08:14 | Outpatient (CLI) | payer MEDICARE ==
[2022-11-15 08:37] LABS: BASOPHILS # (AUTO) 0.1 10^3/uL (0.0-0.1); BASOPHILS % (AUTO) 0.8 %; EOSINOPHILS # (AUTO) 0.3 10^3/uL (0.0-0.7); EOSINOPHILS % (AUTO) 4.8 %; HCT - HEMATOCRIT 45.4 % (42.0-52.0); HGB - HEMOGLOBIN 15.5 g/dL (14.0-18.0); LYMPHOCYTES # (AUTO) 1.4 10^3/uL (1.5-3.5); LYMPHOCYTES % (AUTO) 21.6 %; MEAN CORPUSCULAR HEMOGLOBIN 32.6 pg (27.0-31.0); MEAN CORPUSCULAR HGB CONC 34.1 g/dL (32.0-36.0); MEAN CORPUSCULAR VOLUME 95.6 fL (80.0-94.0); MEAN PLATELET VOLUME 11.1 fL (7.4-11.4); MONOCYTES # (AUTO) 0.6 10^3/uL (0.0-1.0); MONOCYTES % (AUTO) 9.6 %; NEUTROPHILS # (AUTO) 4.1 10^3/uL (1.5-6.6); PLT - PLATELET COUNT 144 10^3/uL (130-450); RED BLOOD COUNT 4.75 10^6/uL (4.70-6.10); RED CELL DISTRIBUTION WIDTH 13.5 % (12.0-15.0); WHITE BLOOD COUNT 6.5 x10^3/uL (4.8-10.8)
[2022-11-15 09:01] LABS: ALBUMIN 4.1 g/dL (3.2-5.5); ALBUMIN/GLOBULIN RATIO 1.6 (1.0-2.2); ALKALINE PHOSPHATASE 65 IU/L (42-121); ALT ALANINE AMINOTRANSFERASE 27 IU/L (10-60); AST ASPARTATE AMINOTRANSFERASE 20 IU/L (10-42); BILIRUBIN,TOTAL 0.9 mg/dL (0.2-1.0); BUN - BLOOD UREA NITROGEN 21 mg/dL (6-20); CALCIUM 9.2 mg/dL (8.5-10.3); CARBON DIOXIDE - CO2 27 mmol/L (21-32); CHLORIDE 107 mmol/L (101-111); CHOL/HDL RATIO 2.7 (<5.0); CHOLESTEROL 147 mg/dL; CREATININE 1.1 mg/dL (0.6-1.3); GFR - MDRD 65 (>89); GLUCOSE 88 mg/dL (74-104); HDL CHOLESTEROL 54 mg/dL; LDL CHOLESTEROL,CALCULATED 72 mg/dL; LDL/HDL RATIO 1.3 (<3.6); POTASSIUM 4.2 mmol/L (3.5-4.5); SODIUM 141 mmol/L (135-145); TOTAL PROTEIN 6.7 g/dL (6.4-8.9); TRIGLYCERIDES 105 mg/dL (48-352); VLDL CHOLESTEROL 21 mg/dL
[2022-11-15 09:06] LABS: THYROID STIMULATING HORMONE 1.66 uIU/mL (0.34-5.60)
== END 2022-11-15 08:15 | disposition home or self-care (01) ==
LOC: LAB 08:14
PROVIDERS: ATTEND Registered Nurse
DX: I10 Essential (primary) hypertension (principal); E78.5 Hyperlipidemia, unspecified; Z12.5 Encounter for screening for malignant neoplasm of prostate; E06.3 Autoimmune thyroiditis; E04.1 Nontoxic single thyroid nodule; E03.9 Hypothyroidism, unspecified
CPT/HCPCS: 36415; 80053; 80061; 84443; 85025; G0103; 83721; 84153

== ENCOUNTER 2022-11-18 10:57 | Outpatient (CLI) | payer MEDICARE ==
--- NOTE | 2022-11-18 16:22 | XRAY Report ---
PROCEDURE: Chest 2 View X-Ray INDICATIONS: BREATH SOUNDS,ABNORMAL TECHNIQUE: 2 views of the chest were acquired. COMPARISON: 03/25/2016 FINDINGS: Surgical changes and devices: None. Lungs and pleura: No pleural effusions or pneumothorax. Lungs are clear. Mediastinum: Mediastinal contours appear normal. Heart size is normal. Bones and chest wall: No suspicious bony lesions. Overlying soft tissues appear unremarkable. IMPRESSION: No acute cardiopulmonary process. Reviewed by: Aniceto Delacruz MD on 11/18/2022 4:20 PM PDT Approved by: Aniceto Delacruz MD on 11/18/2022 4:20 PM PDT Station ID: [id number]
== END 2022-11-18 10:58 | disposition home or self-care (01) ==
LOC: DI 10:57
PROVIDERS: ATTEND Registered Nurse
DX: R09.89 Other specified symptoms and signs involving the circulatory and respiratory systems (principal)

== ENCOUNTER 2023-01-24 07:45 | Outpatient (CLI) | payer MEDICARE ==
--- NOTE | 2023-01-24 13:01 | XRAY Report ---
PROCEDURE: Chest 2 View X-Ray INDICATIONS: ACUTE COUGH TECHNIQUE: 2 views of the chest were acquired. COMPARISON: CXR . FINDINGS: Surgical changes and devices: None. Lungs and pleura: No pleural effusions or pneumothorax. Lungs are clear. Mediastinum: Mediastinal contours appear unchanged. Heart size is normal. Bones and chest wall: No suspicious bony lesions. Overlying soft tissues appear unremarkable. IMPRESSION: No acute cardiopulmonary process. Reviewed by: Arias Mckeon MD on 01/24/2023 1:00 PM [facility] Approved by: Arias Mckeon MD on 01/24/2023 1:00 PM [facility] Station ID: [id number]
== END 2023-01-24 08:00 | disposition home or self-care (01) ==
LOC: DI.N 07:45
PROVIDERS: ATTEND Physician Assistant Medical
DX: R05.1 Acute cough (principal)

== ENCOUNTER 2023-07-14 12:01 | Outpatient (CLI) | payer MEDICARE ==
[2023-07-14 12:25] LABS: BASOPHILS # (AUTO) 0.1 10^3/uL (0.0-0.1); BASOPHILS % (AUTO) 0.8 %; EOSINOPHILS # (AUTO) 0.3 10^3/uL (0.0-0.7); EOSINOPHILS % (AUTO) 3.8 %; HCT - HEMATOCRIT 45.2 % (42.0-52.0); LYMPHOCYTES # (AUTO) 1.6 10^3/uL (1.5-3.5); MEAN CORPUSCULAR HEMOGLOBIN 33.5 pg (27.0-31.0); MEAN CORPUSCULAR HGB CONC 35.4 g/dL (32.0-36.0); MEAN CORPUSCULAR VOLUME 94.8 fL (80.0-94.0); MEAN PLATELET VOLUME 11.4 fL (7.4-11.4); MONOCYTES # (AUTO) 0.7 10^3/uL (0.0-1.0); MONOCYTES % (AUTO) 10.5 %; NEUTROPHILS % (AUTO) 60.7 %; PLT - PLATELET COUNT 144 10^3/uL (130-450); RED BLOOD COUNT 4.77 10^6/uL (4.70-6.10); RED CELL DISTRIBUTION WIDTH 12.8 % (12.0-15.0); WHITE BLOOD COUNT 6.6 x10^3/uL (4.8-10.8)
[2023-07-14 12:31] LABS: INR 1.3 (0.8-1.2); PT - PROTHROMBIN TIME 14.2 secs (9.9-12.6)
[2023-07-14 12:38] LABS: CALCIUM 9.5 mg/dL (8.5-10.3); POTASSIUM 4.5 mmol/L (3.5-4.5)
== END 2023-07-14 12:02 | disposition home or self-care (01) ==
LOC: LAB 12:01
PROVIDERS: ATTEND Internal Medicine Cardiovascular Disease
DX: I48.0 Paroxysmal atrial fibrillation (principal)
CPT/HCPCS: 36415; 80048; 85025; 85610

== ENCOUNTER 2023-07-15 14:17 | Outpatient (CLI) | payer MEDICARE | END 2023-07-15 14:18 | disposition home or self-care (01) | LOC: DI 14:17 | PROVIDERS: ATTEND Registered Nurse | DX: I48.3 Typical atrial flutter (principal); I77.810 Thoracic aortic ectasia | CPT/HCPCS: 93307 ==